=== PATIENT | female | born 1975 | race Caucasian/White ===

== ENCOUNTER 2020-08-17 12:32 | Outpatient (REF) | payer OTHER, SELFPAY ==
[2020-08-17 12:58] LABS: COVID-19 Test Negative (Negative)
== END 2020-08-17 12:33 | disposition home or self-care (01) ==
LOC: HO.EMPCOV 12:32
PROVIDERS: Visit Provider Internal Medicine
DX: Z20.828 Contact with and (suspected) exposure to other viral communicable diseases (principal)
CPT/HCPCS: 87635; C9803

== ENCOUNTER 2020-08-31 08:09 | Outpatient (REF) | payer OTHER, SELFPAY ==
--- NOTE | 2020-08-31 08:14 | MM_ITS ---
EXAMINATION: MM SCREENING DIGITAL BREAST TOMOSYNTHESIS, BILATERAL CLINICAL INFORMATION: Screening. Asymptomatic. Benign stereotactic biopsy left breast 09/12/2018 (breast tissue with stromal fibrosis, focal usual ductal hyperplasia, and microcalcifications. No atypia or carcinoma seen). The lifetime risk of breast cancer based on the Tyrer-Cuzick Model is 18%. COMPARISON: Mammography: 08/26/2019, 09/12/2018, 09/03/2018, 08/20/2018, 08/06/2017 TECHNIQUE: Digital breast tomosynthesis is performed in both the craniocaudal and mediolateral oblique views along with computer-aided detection (CAD). Synthesized 2D images are generated from the tomosynthesis. FINDINGS: The breasts are heterogeneously dense, which may obscure small masses (ACR BI-RADS breast composition Category c). Breast tissue composition borders on extremely dense. There are no significant masses, abnormal calcifications, or other abnormalities. There is a biopsy clip marker anterior 6:00 left breast. The axilla and skin contours are unremarkable. MM/MM tomosynthesis screening BI IMPRESSION: No mammographic evidence of malignancy. ASSESSMENT: BI-RADS 1: Negative RECOMMENDATION: Routine annual mammography screening. This patient's information was entered into a reminder system with a target due date for their next mammogram.
== END 2020-08-31 08:10 | disposition home or self-care (01) ==
LOC: HO.MAMMO 08:09
PROVIDERS: PCP Internal Medicine; Visit Provider Student in an Organized Health Care Education/Training Program
DX: Z12.31 Encounter for screening mammogram for malignant neoplasm of breast (principal)
CPT/HCPCS: 77063; 77067

== ENCOUNTER 2021-03-23 08:51 | Outpatient (REF) | payer OTHER, SELFPAY ==
[2021-03-23 10:02] LABS: Free T4 (Free Thyroxine) 1.19 ng/dL (0.71-1.85); Thyroid Stimulating Hormone 1.71 uIU/mL (0.32-4.0)
== END 2021-03-23 08:52 | disposition home or self-care (01) ==
LOC: HO.LAB 08:51
PROVIDERS: PCP Internal Medicine; Visit Provider Nurse Practitioner Primary Care
DX: R49.9 Unspecified voice and resonance disorder (principal)
CPT/HCPCS: 36415; 84439; 84443

== ENCOUNTER 2021-09-06 07:17 | Outpatient (REF) | payer OTHER, SELFPAY ==
--- NOTE | ~2021-09-06 | MM_ITS ---
EXAMINATION: MM SCREENING DIGITAL BREAST TOMOSYNTHESIS, BILATERAL CLINICAL INFORMATION: Screening. Asymptomatic. Benign left stereotactic biopsy 09/12/2018 (stromal fibrosis, focal usual ductal hyperplasia, and microcalcifications). The lifetime risk of breast cancer based on the Tyrer-Cuzick Model is 17%. COMPARISON: Mammography: 08/31/2020, 120, 09/12/2018, 09/03/2018, 08/20/2018 TECHNIQUE: Digital breast tomosynthesis is performed in both the craniocaudal and mediolateral oblique views along with computer-aided detection (CAD). Synthesized 2D images are generated from the tomosynthesis. FINDINGS: The breasts are heterogeneously dense, which may obscure small masses (ACR BI-RADS breast composition Category c). There are no significant masses, abnormal calcifications, or other abnormalities. There is biopsy clip marker anterior 6:00 left breast. There is no developing density or interval mass or abnormal calcifications. No significant changes. MM/MM tomosynthesis screening BI IMPRESSION: No mammographic evidence of malignancy. ASSESSMENT: BI-RADS 1: Negative RECOMMENDATION: Routine annual mammography screening. This patient's information was entered into a reminder system with a target due date for their next mammogram.
== END 2021-09-06 07:18 | disposition home or self-care (01) ==
LOC: HO.MAMMO 07:17
PROVIDERS: Visit Provider Student in an Organized Health Care Education/Training Program
DX: Z12.31 Encounter for screening mammogram for malignant neoplasm of breast (principal)
CPT/HCPCS: 77063; 77067

== ENCOUNTER 2022-09-11 07:34 | Outpatient (REF) | payer OTHER, SELFPAY ==
--- NOTE | ~2022-09-11 | MM_ITS ---
EXAMINATION: MM SCREENING DIGITAL BREAST TOMOSYNTHESIS, BILATERAL CLINICAL INFORMATION: Screening. Asymptomatic. The lifetime risk of breast cancer based on the Tyrer-Cuzick Model is 16%. COMPARISON: Mammography: 09/06/2021 and studies dating back to 07/20/2015. TECHNIQUE: Digital breast tomosynthesis is performed in both the craniocaudal and mediolateral oblique views along with computer-aided detection (CAD). Synthesized 2D images are generated from the tomosynthesis. FINDINGS: The breasts are extremely dense, which lowers the sensitivity of mammography (ACR BI-RADS breast composition Category d). There are no new significant masses, abnormal calcifications, or other abnormalities. The density about the superior anterior aspect of the right breast appears to have been present on previous studies in this patient with prior ultrasounds demonstrating multiple bilateral cysts. MM/MM tomosynthesis screening BI IMPRESSION: No significant change. ASSESSMENT: BI-RADS 1: Negative. RECOMMENDATION: Routine annual mammography screening. This patient's information was entered into a reminder system with a target due date for their next mammogram.
== END 2022-09-11 07:35 | disposition home or self-care (01) ==
LOC: HO.MAMMO 07:34
PROVIDERS: Visit Provider Nurse Practitioner Primary Care
DX: Z12.31 Encounter for screening mammogram for malignant neoplasm of breast (principal)
CPT/HCPCS: 77063; 77067

== ENCOUNTER 2023-09-18 07:21 | Outpatient (REF) | payer OTHER, SELFPAY ==
--- NOTE | ~2023-09-18 | MM_ITS ---
EXAMINATION: MM SCREENING DIGITAL BREAST TOMOSYNTHESIS, BILATERAL CLINICAL INFORMATION: Screening. Asymptomatic. COMPARISON: Mammography: This study is compared with prior exams dating back to 2019. TECHNIQUE: Digital breast tomosynthesis is performed in both the craniocaudal and mediolateral oblique views along with computer-aided detection (CAD). Synthesized 2D images are generated from the tomosynthesis. FINDINGS: The breasts are heterogeneously dense, which may obscure small masses (ACR BI-RADS breast composition Category c). There are no significant masses, abnormal calcifications, or other abnormalities. There is a tissue marker present in the left breast from prior benign percutaneous biopsy. MM/MM tomosynthesis screening BI IMPRESSION: No mammographic evidence of malignancy. ASSESSMENT: BI-RADS BI-RADS 2 - Benign Findings RECOMMENDATION: Routine annual mammography screening. 1 year F/U This examination should not preclude the clinical evaluation of a suspicious palpable abnormality. This patient's information was entered into a reminder system with a target due date for their next mammogram.
== END 2023-09-18 07:22 | disposition home or self-care (01) ==
LOC: HO.MAMMO 07:21
PROVIDERS: PCP Nurse Practitioner Primary Care; Visit Provider Internal Medicine
DX: Z12.31 Encounter for screening mammogram for malignant neoplasm of breast (principal)
CPT/HCPCS: 77063; 77067

== ENCOUNTER → 2023-09-18 07:30 | Outpatient (BNV) | payer OTHER, SELFPAY | PROVIDERS: PCP Nurse Practitioner Primary Care; Visit Provider Radiology Diagnostic Radiology | DX: Z12.31 Encounter for screening mammogram for malignant neoplasm of breast (principal) | CPT/HCPCS: 77063; 77067 ==

== ENCOUNTER 2024-11-11 11:17 | Outpatient (REF) | payer OTHER, SELFPAY ==
--- OUTSIDE RECORDS SUMMARY | 2024-11-11 13:38 | XMS_ITS | Clinical Summary ---
Author Organization [facility] Address [address] [address] Phone Care Team Providers Care Head Usher Name Role Phone Pcp, Unknown Primary Care Provider Unavailabl e Allergies No known active allergies Medications Medication Sig Dispensed Refills Start Date End Date Status norgestimate-ethinyl estradioL (ORTHO-CYCLEN) 0.25-0.035 mg per tablet Take 1 tablet by mouth daily. 04/19/2022 Active Active Problems No known active problems Social History Tobacco Use Types Packs/Day Years Used Date Smoking Tobacco: Never Assessed Education Answer Date Recorded Are you interested in more education? Not on johanny e 12/15/2022 Are you concerned about learning? Not on file 12/15/2022 No 12/15/2022 No 12/15/2022 Digital Access Answer Date Recorded No 2023 No 2023 No 2023 Reliable internet access at home? Not on file 2023 Device with a working camera? Not on file Sex and Gender Information Value Date Recorded Sex Assigned at Not on file Gender Identity Not on file Sexual Orientation Not on file Last Filed Vital Signs Vital Sign Reading Time Taken Comments Blood Pressure 112/64 06/22/2022 11:58 AM EDT Pulse 91 06/22/2022 11:58 AM EDT Temperature 36.7 ??C (98.1 ??F) 06/22/2022 11:58 AM E DT Respiratory Rate 16 06/22/2022 11:58 AM EDT Oxygen Saturation 96% 06/22/2022 11:58 AM EDT Inhaled Oxygen Concentration - - Weight 68 kg (150 lb) 06/22/2022 11:58 AM EDT Height 175.3 cm (5' 9 ) 06/22/2022 11:58 AM EDT Body Mass Index 22.15 06/22/2022 11:58 AM EDT Plan of Treatment Health Maintenance Due Date Last Done Comments Adult Td,Tdap Booster 1975 LIPID PANEL 1975 DEPRESSION SCREENING 1987 SMOKING Hx and SMOKELESS TOBACCO SCREENING 01/14/1988 HEPATITIS B SCREENING 1993 HEPATITIS C SCREENING 1993 HIV ONE-TIME SCREENING (18-65 YEARS) 1993 HEPATITIS B VACCINES (1 of 3 - 19+ 3-dose series) 1994 PAP SMEAR 01/14/1996 MAMMOGRAM 2015 COLOGUARD 01/14/2020 COLONOSCOPY 01/14/2020 COLORECTAL CANCER SCREENING 01/14/2020 FIT TEST 01/14/2020 FOBT 01/14/2020 SIGMOIDOSCOPY 01/14/2020 VIRTUAL COLONOSCOPY 01/14/2020 INFLUENZA VACCINE (#1) 2024 2, 05/23/2021, 06/01/2020, Additional history exists COVID-19 VACCINE ( season) 2024 05/17/2021, 08/30/2020, 08/09/2020 HEPATITIS A VACCINES Aged Out No long er eligible based on patient's age to complete this topic HIB VACCINES Aged Out No longer eligi ble based on patient's age to complete this topic MENINGOCOCCAL VACCINES (ACWY) Aged Out No longer eligible based on patient's age to complete this topic PNEUMOCOCCAL VACCINES (0-49 years) Aged Out No longer eligible based on patient's age to complete this topic Medical Devices Not on file Care Teams Head Usher Relationship Specialty Start Date End Date Pcp, Unknown PCP - General 06/11/22 Additional Source Comments The information contained in this document represents components of the legal health record. It is not the complete legal health record.[facility]
== END 2024-11-11 11:18 | disposition home or self-care (01) ==
LOC: HO.MAMMO 11:17
PROVIDERS: PCP Nurse Practitioner Primary Care; Visit Provider Nurse Practitioner Primary Care
DX: Z12.31 Encounter for screening mammogram for malignant neoplasm of breast (principal)
CPT/HCPCS: 77063; 77067

== ENCOUNTER → 2024-11-11 11:30 | Outpatient (BNV) | payer OTHER, SELFPAY | PROVIDERS: PCP Nurse Practitioner Primary Care; Visit Provider Internal Medicine | DX: Z12.31 Encounter for screening mammogram for malignant neoplasm of breast (principal) | CPT/HCPCS: 77063; 77067 ==